=== PATIENT | female | born 1995 | race Caucasian/White ===

== ENCOUNTER 2017-05-21 08:26 | Day surgery (SDC) | payer BC ==
[2017-05-17 11:08] VITALS: BMI 20.2
--- NOTE | 2017-05-21 05:31 | HP ---
HISTORY AND PHYSICAL CHIEF COMPLAINT: Recurrent tonsillitis. HISTORY OF PRESENT ILLNESS: This patient is a pleasant 31-year-old female who was recently seen in my office as a referral from the emergency room because of recurrent episodes of tonsillitis. The patient states that she has had multiple episodes of streptococcal tonsillitis despite treatment with various types of oral antibiotics. She is a nonsmoker. She states that she quit smoking approximately 4 months ago. At the time that she was seen in my office, clinical examination of the oropharynx revealed 4+ cryptic tonsils filled with white cheesy debris. It was recommended that the patient undergo a tonsillectomy under general anesthesia. PAST MEDICAL HISTORY: Past medical history reveals the patient has no known allergies to medications. She is not currently on any medications. There is no history of asthma, diabetes mellitus or hypertension. REVIEW OF SYSTEMS: Review of systems is noncontributory. PHYSICAL EXAMINATION: The patient is a 31-year-old female who is alert and cooperative. HEENT EXAMINATION: Patient is normocephalic. Tympanic membranes are normal. Middle ear spaces are free of any fluid or infection. Pupils are equal, round, and reactive to light and accommodation. Extraocular movements are within normal limits. Intranasal examination reveals moderate septal deviation with compensatory hypertrophy of the inferior turbinates. Examination of the oropharynx reveals 4+ tonsillar hypertrophy with very prominent tonsillar crypts filled with white cheesy debris. Palpation of the neck is negative for any neck masses or lymphadenopathy. Cranial nerves 2 through 12 and the remainder of the head and neck exam are within normal limits. CHEST/CARDIOVASCULAR: Both lung navarro are clear to percussion and auscultation. The patient is in regular sinus rhythm. S1 and S2 are present without evidence of any murmurs. ABDOMEN: There is no evidence of any masses, megaly, or tenderness. The abdomen is soft. Peripheral pulses are bilaterally symmetrical and within normal limits. Skin is unremarkable. Musculoskeletal and neurological are within normal limits. PELVIC/RECTAL EXAM: The pelvic/rectal exam is deferred at this time because the patient has this done on a regular basis at her family physician's office. The remainder of the physical exam is unremarkable. IMPRESSION: Chronic tonsillitis. PLAN: The patient is scheduled to undergo a tonsillectomy under general anesthesia in a.m. ATTENTION RNS IN THE PRE-SURGICAL AREA: The only medications that I have ordered for this patient to receive preoperatively are 1000 mg of Ofirmev IV and also 1 gram of Ancef IV, both to be given once an intravenous line has been established. If the pharmacy department sends any other pre-surgical prophylactic antibiotics to the pre- surgical area for this patient, they should be canceled and returned to the pharmacy department and make sure that the patient's account is credited appropriately. I have discussed the risks, benefits and alternative therapies for the above- mentioned procedure and for both sedation/analgesia as well as necessary blood product administration, if indicated, as they pertain to this patient. The patient has indicated his or her understanding and acceptance of the risks and procedures discussed. MMODL / IJN: [id number] / TANVIR
[~2017-05-21 08:26] MED LIST: ACETAMINOPHEN IV (For NPO) 1,000 MG in EMPTY BAG 1 BAG IVPB ONE; DEXAMETHASONE SOD PHOSPHATE 10 MG/ML 1 ML VIAL IV ONE; LACTATED RINGERS 1,000 ML IV SCH; LIDOCAINE 1% 20 ML VIAL (10MG/ML) FOR IV START INTRADERMA PRN; MORPHINE SULFATE 2 MG/ML SYRINGE IV PRN; NALOXONE 0.4 MG/ML 1 ML VIAL IV PRN; ONDANSETRON 4 MG/2 ML VIAL IVP ONE; SCOPOLAMINE 1.5MG/72HR PATCH TRANSDERM ONE; ceFAZolin 1,000 MG in DEXTROSE/WATER 1 50ML.BAG IVPB ONE
[2017-05-21] MEDS ORDERED: LIDOCAINE 1% INJ 10MG/ML (20 ML MDV) ONE (09:43)
[2017-05-21] MEDS ORDERED: fentaNYL (PF) 50 MCG/ML 2 ML AMP ONE (09:43)
[2017-05-21] MEDS ORDERED: MIDAZOLAM 2 MG/2 ML VIAL ONE (09:43)
[2017-05-21] MEDS ORDERED: SUCCINYLCHOLINE CHLORIDE 100 MG/5 ML SYR IV ONE (09:43)
[2017-05-21] MEDS ORDERED: PROPOFOL 10 MG/ML 20 ML VIAL IV ONE (09:43)
[2017-05-21] MEDS ORDERED: BUPIVACAINE (PF) 0.5% 30 ML VIAL SQ ONE ×3 (10:00→10:27)
[2017-05-21 10:56] VITALS: TEMP 98.3
[2017-05-21] MEDS ORDERED: LACTATED RINGERS 1,000 ML IV SCH (11:45)
[2017-05-21] MEDS ORDERED: HYDROmorphone PCA 5 MG/25 ML SYRINGE IV PRN (11:45)
[2017-05-21 11:50] VITALS: RESP 18
[2017-05-21] MEDS ORDERED: ONDANSETRON 4 MG/2 ML VIAL IVP PRN (13:00)
[2017-05-21 15:16] VITALS: BP 105/60; PULSE 65
--- NOTE | 2017-05-21 22:59 | OP ---
OPERATIVE REPORT DATE OF SERVICE: 05/21/2017. PREOPERATIVE DIAGNOSIS: Chronic tonsillitis. POSTOPERATIVE DIAGNOSIS: Chronic tonsillitis. ANESTHESIA: General. OPERATIVE PROCEDURE: Tonsillectomy. SURGEON: Nahid Welsh MD COMPLICATIONS: None. ESTIMATED BLOOD LOSS: Less than 50 mL. OPERATIVE PROCEDURE: The patient was placed on the Operating Table in the supine position, after uneventful induction and endotracheal intubation, satisfactory general anesthesia was obtained. Next, the #3 Elia-John mouth gag was introduced into the oropharynx, expanded and suspended from a Jimenez Stand. Following this, both peritonsillar areas were injected with the tonsillar forceps and pulled medially. The sickle knife was used to make an incision 4 mm lateral to the anterior pillar, beginning at the superior pole and working down to the inferior pole with a similar incision being carried out parallel to the posterior pillar. The angle scissors and the serrated Corrina dissector were used to dissect the tonsil away from the tonsillar fossa. The tonsil itself was excised en toto using the tonsillar snare. Hemostasis was obtained using suction cautery. A sponge was placed in the empty tonsillar fossa. Attention was then directed to the left tonsil where the same procedure was carried out, with the left tonsil being grasped with the tonsillar forceps and pulled medially. The sickle knife was used to make an incision 4 mm lateral to the anterior pillar beginning at the superior pole and working down to the inferior pole with a similar incision being carried out parallel to the posterior pillar. Once again, the angle scissors and the serrated Corrina dissector were used to dissect the tonsil away from the tonsillar fossa and the tonsil itself was excised en toto using the tonsillar snare. Hemostasis was obtained using suction cautery. A sponge was placed in the empty tonsillar fossa. The mouth gag was relaxed for a period of approximately seven minutes and upon re-expanding and removing all sponges, no evidence of any active bleeding was noted. At this point, the procedure was terminated. There were no intraoperative complications. The patient tolerated the procedure well and was returned to the Recovery Room in satisfactory condition. MMODL / IJN: [id number] /
== END 2017-05-21 16:02 | disposition home or self-care (01) ==
LOC: EDBD 08:26 → OR 08:26
PROVIDERS: ATTEND Otolaryngology
DX: J35.01 Chronic tonsillitis (principal); A42.89 Other forms of actinomycosis; Z87.891 Personal history of nicotine dependence; Z79.891 Long term (current) use of opiate analgesic; Z79.899 Other long term (current) drug therapy; Z79.2 Long term (current) use of antibiotics
CPT/HCPCS: 81025; 88304; 42826; J2250; J1100; J2405; J2001; J3010; J0690; J0131; J0330; J2704

== ENCOUNTER → 2017-08-24 | Outpatient (CLI) | payer BC ==
--- NOTE | 2017-08-24 09:41 | XR ---
EXAMINATION TYPE: XR finger RT DATE OF EXAM: 08/24/2017 COMPARISON: NONE HISTORY: Pain TECHNIQUE: Two views are submitted. FINDINGS: The osseous structures are intact. The joint spaces are preserved and there is no acute fracture or dislocation. IMPRESSION: 1. No definite acute fracture or dislocation if symptoms persist, follow-up study in 7 to 10 days wo uld be suggested
== END | disposition home or self-care (01) ==
LOC: RADXRYALE 09:20
PROVIDERS: ATTEND Pediatrics
DX: S67.190A Crushing injury of right index finger, initial encounter (principal); S67.192A Crushing injury of right middle finger, initial encounter